=== PATIENT | female | born 1975 | race Caucasian/White ===

== ENCOUNTER 2022-04-03 11:56 | Inpatient (IN) | payer OTHER ==
[~2022-04-03] VITALS: Ht 175.3 cm; Wt 135.2 kg
[2022-04-03 15:25] LABS: HEMOGLOBIN 11.7 gm/dl (12.3-15.3); RED BLOOD COUNT 4.96 M/UL (4.00-5.10)
[2022-04-03 15:47] LABS: BUN/CREATININE RATIO 24 (0-10)
[2022-04-03] MEDS ORDERED: FERROUS SULFAT325 MG PO (18:35)
[2022-04-03] MEDS ORDERED: LEVETIRACETAM750 MG PO (18:36)
[2022-04-03] MEDS ORDERED: RIZATRIPTAN10 MG PO (18:36)
[2022-04-03] MEDS ORDERED: PREGABALIN75 MG PO (18:36)
[2022-04-03] MEDS ORDERED: CYANOCOBAL1000 MCG/1 INJ (18:37)
[2022-04-03] MEDS ORDERED: VERAPAMIL ER240 MG PO (18:38)
[2022-04-03] MEDS ORDERED: BUSPIRONE HCL15 MG PO (18:38)
[2022-04-03] MEDS ORDERED: AMLODIPINE BESYL5 MG PO (18:39)
[2022-04-03] MEDS ORDERED: CLONAZEPAM1 MG PO (18:39)
[2022-04-03] MEDS ORDERED: CYCLOBENZAPRINE10 MG PO (18:40)
[2022-04-03] MEDS ORDERED: QUETIAPINE FUMA25 MG PO (18:40)
[2022-04-03] MEDS ORDERED: QUETIAPINE FUM300 MG PO (18:41)
[2022-04-03] MEDS ORDERED: LOSARTAN POTASS50 MG PO (18:42)
[2022-04-03] MEDS ORDERED: ATORVASTATIN CA40 MG PO (18:42)
[2022-04-03] MEDS ORDERED: OXCARBAZEPINE300 MG PO (18:43)
[2022-04-03] MEDS ORDERED: DULOXETINE HCL30 MG PO (18:43)
[2022-04-03] MEDS ORDERED: TRAZODONE HCL100 MG PO (18:44)
[2022-04-03] MEDS ORDERED: FAMOTIDINE20 MG PO (18:45)
[2022-04-03] MEDS ORDERED: PROAIR HFA8.5 GM INH (18:46)
[2022-04-03] MEDS ORDERED: HYDROXYZINE HCL25 MG PO (18:46)
[2022-04-03] MEDS ORDERED: ADVAIR 250-501 EACH INH (18:47)
[2022-04-03] MEDS ORDERED: NICOTINE GUM2 MG MT (18:48)
[2022-04-03] MEDS ORDERED: NICOTINE PATCH1 EAC1 TD (18:49)
[2022-04-03] MEDS ORDERED: MONTELUKAST SOD10 MG PO (18:49)
[2022-04-03] MEDS ORDERED: CARVEDILOL3.125 MG PO (18:50)
[2022-04-03] MEDS ORDERED: ABILIFY5 MG PO (18:50)
[2022-04-03] MEDS ORDERED: FLONASE 0.05% N16 GM (18:51)
[2022-04-03] MEDS ORDERED: FOLIC ACID1 MG PO (18:51)
[2022-04-04 03:21] LABS: HEMOGLOBIN 9.6 gm/dl (12.3-15.3); RED BLOOD COUNT 4.21 M/UL (4.00-5.10)
[2022-04-04 03:47] LABS: BUN/CREATININE RATIO 23 (0-10)
[2022-04-05 02:34] LABS: HEMOGLOBIN 9.6 gm/dl (12.3-15.3); RED BLOOD COUNT 4.13 M/UL (4.00-5.10); WHITE BLOOD COUNT 4.1 K/UL (4.5-11.0)
[2022-04-05 03:09] LABS: BUN/CREATININE RATIO 19 (0-10)
[2022-04-05 14:19] LABS: HEMOGLOBIN 9.7 gm/dl (12.3-15.3); RED BLOOD COUNT 4.15 M/UL (4.00-5.10); WHITE BLOOD COUNT 4.4 K/UL (4.5-11.0)
[2022-04-05 14:57] LABS: BUN/CREATININE RATIO 24 (0-10)
--- NOTE | 2022-04-06 19:07 | NUR ---
PT ORTHOSTATIC VITALS WERE TAKEN TODAY AT 1600. LAYING: BP 85/34 ; HR 61 SITTING: BP 111/51 ; HR 63 STANDING: BP 105/43 ; HR [address] ALEMAN.
[2022-04-07 03:04] LABS: HEMOGLOBIN 9.5 gm/dl (12.3-15.3); RED BLOOD COUNT 4.02 M/UL (4.00-5.10); WHITE BLOOD COUNT 4.4 K/UL (4.5-11.0)
[2022-04-07 03:28] LABS: BUN/CREATININE RATIO 26 (0-10)
[2022-04-08 03:35] LABS: HEMOGLOBIN 9.6 gm/dl (12.3-15.3); RED BLOOD COUNT 4.08 M/UL (4.00-5.10)
[2022-04-08 04:11] LABS: BUN/CREATININE RATIO 24 (0-10)
[2022-04-08] MEDS ORDERED: QUETIAPINE FUM300 MG PO (09:42)
[2022-04-08] MEDS ORDERED: FLONASE 0.05% N16 GM ×2 (09:42→09:53)
[2022-04-08] MEDS ORDERED: TRAZODONE HCL100 MG PO (09:42)
[2022-04-08] MEDS ORDERED: ZYRTEC10 MG PO (09:42)
[2022-04-08] MEDS ORDERED: OXCARBAZEPINE300 MG PO (09:42)
[2022-04-08] MEDS ORDERED: ACETAMINOPHEN-1 EAC1 PO (09:42)
[2022-04-08] MEDS ORDERED: CROMOLYN SODIUM10 ML OP (09:55)
[2022-04-08] MEDS ORDERED: EC-NAPROXEN500 MG PO (10:09)
== END 2022-04-08 13:00 | disposition home or self-care (01) | DRG 313 ==
LOC: ER1 11:56 → M/S 17:07
PROVIDERS: Family Medicine; Internal Medicine; ADMIT Internal Medicine
PROC: B24BZZZ Ultrasonography of Heart with Aorta (ICD-10-PCS; principal; 2022-04-05)
DX: R07.9 Chest pain, unspecified (principal); D61.818 Other pancytopenia; N39.0 Urinary tract infection, site not specified; Z68.41 Body mass index [BMI] 40.0-44.9, adult; G35 Multiple sclerosis; N92.0 Excessive and frequent menstruation with regular cycle; M48.02 Spinal stenosis, cervical region; M32.9 Systemic lupus erythematosus, unspecified; E66.9 Obesity, unspecified; J45.909 Unspecified asthma, uncomplicated; E78.5 Hyperlipidemia, unspecified; I10 Essential (primary) hypertension; K21.9 Gastro-esophageal reflux disease without esophagitis; I95.2 Hypotension due to drugs; G43.909 Migraine, unspecified, not intractable, without status migrainosus; D50.9 Iron deficiency anemia, unspecified; E16.2 Hypoglycemia, unspecified; Z98.51 Tubal ligation status; Z82.49 Family history of ischemic heart disease and other diseases of the circulatory system; Z87.891 Personal history of nicotine dependence; Z98.890 Other specified postprocedural states; Z79.899 Other long term (current) drug therapy; Z83.3 Family history of diabetes mellitus; Z82.3 Family history of stroke; Z81.8 Family history of other mental and behavioral disorders; Z88.8 Allergy status to other drugs, medicaments and biological substances; Z79.82 Long term (current) use of aspirin
CPT/HCPCS: ECHO; 36415; 36600; 70553; 71045; 72156; 72157; 80048; 80053; 81001; 82550; 82553; 82607; 82728; 82746; 82803; 82962; 83036; 83540; 83550; 83735; 83880; 84100; 84484; 85025; 85027; 85045; 85379; 93306; 93971; 94640; 94664; 94760; 96365; 96366; 96375; 97110; 97161; 97166; 97530; 97530-GP-CQ; 97535; 99285; A9577; G0378; J1885; J2405; J3475; Q0177

== ENCOUNTER 2022-05-01 19:23 | Emergency (ER) | payer OTHER ==
[~2022-05-01 19:23] MED LIST: ABILIFY5 MG PO; ACETAMINOPHEN-1 EAC1 PO; ADVAIR 250-501 EACH INH; AMLODIPINE BESYL5 MG PO; ATORVASTATIN CA40 MG PO; BUSPIRONE HCL15 MG PO; CARVEDILOL3.125 MG PO; CLONAZEPAM1 MG PO; CROMOLYN SODIUM10 ML OP; CYANOCOBAL1000 MCG/1 INJ; CYCLOBENZAPRINE10 MG PO; DULOXETINE HCL30 MG PO; EC-NAPROXEN500 MG PO; FAMOTIDINE20 MG PO; FERROUS SULFAT325 MG PO; FLONASE 0.05% N16 GM; FOLIC ACID1 MG PO; HYDROXYZINE HCL25 MG PO; LEVETIRACETAM750 MG PO; LOSARTAN POTASS50 MG PO; MONTELUKAST SOD10 MG PO; NICOTINE GUM2 MG MT; NICOTINE PATCH1 EAC1 TD; OXCARBAZEPINE300 MG PO; PREGABALIN75 MG PO; PROAIR HFA8.5 GM INH; QUETIAPINE FUM300 MG PO; QUETIAPINE FUMA25 MG PO; RIZATRIPTAN10 MG PO; TRAZODONE HCL100 MG PO; VERAPAMIL ER240 MG PO; ZYRTEC10 MG PO
[2022-05-01 21:05] LABS: HEMOGLOBIN 13.1 gm/dl (12.3-15.3); RED BLOOD COUNT 5.29 M/UL (4.00-5.10); WHITE BLOOD COUNT 6.9 K/UL (4.5-11.0)
[2022-05-01 21:21] LABS: BUN/CREATININE RATIO 21 (0-10)
== END 2022-05-02 02:13 | disposition home or self-care (01) ==
LOC: ER1 19:23
PROVIDERS: Physician Assistant
DX: R10.9 Unspecified abdominal pain (principal); R07.9 Chest pain, unspecified
CPT/HCPCS: 71045; 80053; 81001; 82550; 82553; 83880; 84439; 84443; 84484; 85025; 85610; 85652; 85730; 86140; 87086; 93005; 99285

== ENCOUNTER 2022-07-01 18:11 | Emergency (ER) | payer OTHER ==
[2022-07-01 20:05] LABS: HEMOGLOBIN 12.5 gm/dl (12.3-15.3); RED BLOOD COUNT 4.93 M/UL (4.00-5.10); WHITE BLOOD COUNT 6.3 K/UL (4.5-11.0)
[2022-07-01 20:30] LABS: BUN/CREATININE RATIO 13 (0-10)
[2022-07-01] MEDS ORDERED: HYDROCODON-ACE1 EAC4 PO (22:28)
[2022-07-01] MEDS ORDERED: PROVERA 10 MG T10 MG PO (22:28)
== END 2022-07-01 23:15 | disposition home or self-care (01) ==
LOC: ER1 18:11
PROVIDERS: Student in an Organized Health Care Education/Training Program
DX: N93.8 Other specified abnormal uterine and vaginal bleeding (principal); J45.909 Unspecified asthma, uncomplicated; K21.9 Gastro-esophageal reflux disease without esophagitis; I11.9 Hypertensive heart disease without heart failure; I43 Cardiomyopathy in diseases classified elsewhere; F17.200 Nicotine dependence, unspecified, uncomplicated
CPT/HCPCS: 80053; 81001; 82550; 82553; 84484; 84703; 85025; 94664; 96374; 99284; J2270; Q9967